=== PATIENT | female | born 1950 | race Caucasian/White ===

== ENCOUNTER 2017-05-30 06:28 | Day surgery (SDC) | payer BC ==
[2017-05-24 10:57] VITALS: BMI 39.6
[2017-05-30] MEDS ORDERED: SUCCINYLCHOLINE CHLORIDE 200 MG/10 ML VIAL ONE (06:52)
[2017-05-30] MEDS ORDERED: PROPOFOL 20 ML ONE ×6 (06:52)
[2017-05-30] MEDS ORDERED: LIDOCAINE HCL/PF 2% SDV 5ML VIAL ONE (06:52)
[2017-05-30] MEDS ORDERED: ePHEDrine SULFATE 50 MG/1 ML AMPULE ONE (06:52)
[2017-05-30] MEDS ORDERED: ONDANSETRON 4 MG/2 ML VIAL ONE ×2 (06:52→07:56)
[2017-05-30] MEDS ORDERED: LIDOCAINE HCL 2% (20ML MULTI-DOSE VIAL) NR ONE (07:11)
[2017-05-30] MEDS ORDERED: BUPIVACAINE HCL/PF 0.5% (5MG/ML) 10 ML VIAL ONE (07:11)
[2017-05-30] MEDS ORDERED: MIDAZOLAM HCL 2 MG/2 ML SINGLE DOSE VIAL ONE (07:14)
[2017-05-30] MEDS ORDERED: LIDOCAINE HCL 2% (50ML VIAL) INF ONE (07:43)
[2017-05-30] MEDS ORDERED: BUPIVACAINE HCL/PF 0.5% (5MG/ML) 10 ML VIAL IJ ONE (07:47)
[2017-05-30] MEDS ORDERED: ACETAMINOPHEN WITH CODEINE 300MG/30MG TABLET PO PRN (08:34)
[2017-05-30 09:03] VITALS: TEMP 98.2
--- NOTE | 2017-05-30 09:05 | OP ---
DATE OF OPERATION: 05/30/2017 PREOPERATIVE DIAGNOSIS: Hallux rigidus, right foot. POSTOPERATIVE DIAGNOSIS: Hallux rigidus, right foot. OPERATIVE PROCEDURE: Chilectomy, right foot 1st metatarsophalangeal joint. OPERATION IN DETAIL: The patient was taken to the operating room, placed on the operating table in the supine position. After anesthesia was initiated, local anesthesia was initiated with a total of 10 mL of a 50:50 mix of 2% plain Xylocaine and 0.5% Marcaine. At this point, prepping and draping were completed and after a full 3 minutes of elevation the right extremity was lowered to the operating table and surgery began. A 6-cm linear incision was effectively placed dorsally over the 1st metatarsophalangeal joint. All vital structures were identified and retracted or coagulated. At this point, a linear incision was effectively made medial to the extensor tendon complex down to bone. A large dorsal and dorsomedial eminence was noted over the joint blocking motion of the joint. Using an osteotome and mallet and a rongeur, all the bony excrescence was removed. A rasp was used to clean up any rough edges. The area was flushed with copious amounts of sterile saline. A small portion of the base of the proximal phalanx on the medial side was also removed and rasped. At this point, the capsule was reapproximated and closed with No. 2-0 Vicryl. Subcutaneous and subcuticular layers were closed with No. 3-0 and 4-0 Vicryl. Skin was reapproximated and closed with No. 4-0 nylon. The tourniquet was removed and the capillary filling time was noted to be instantaneous. PRECIOUS [id number]
[2017-05-30 11:07] VITALS: BP 128/76; PULSE 66
--- NOTE | 2017-06-01 16:47 | PATH ---
Surgical Pathology Report Patient Name: CAREN FOFANA [facility]. Rec. #: [id number] /Age/Gender: 1950 (Age: 66) / F Account: [id number] Location: [facility] AMBULATORY Taken: 05/30/2017 Received: 05/30/2017 Reported: 06/01/2017 Physicians: Britta Riggins Specimen(s) Received BONE OF RIGHT FIRST METAPHALANGIAL JOINT Clinical History Hallux rigidus right foot Final Diagnosis BONE, RIGHT FIRST METAPHALANGIAL JOINT, EXCISION: BONE AND CARTILAGE WITH NO PATHOLOGIC FINDINGS. Electronically Signed Jodie Osorio M.D. Gross Description Received in formalin labeled "bone of right first metaphalangial joint," is a 2.1 x 1.9 x 0.3 cm aggregate of young bone fragments. A contracts representative portion is submitted in one cassette, following decalcification. /05/31/2017 [facility]05/31/2017
== END 2017-05-30 10:30 | disposition home or self-care (01) ==
LOC: FASU 06:28
PROVIDERS: ATTEND Podiatrist
PROC: 0QBN0ZZ Excision of Right Metatarsal, Open Approach (ICD-10-PCS; principal; 2017-05-30 07:43)
DX: M20.21 Hallux rigidus, right foot (principal)
CPT/HCPCS: 73630-TC-RT-FY; 88304-TC; 88311-TC